=== PATIENT | male | born 1955 | race Caucasian/White ===

== ENCOUNTER 2018-10-28 14:18 | Emergency (ER) | payer MEDICARE, BC ==
[~2018-10-28] VITALS: Ht 172.7 cm; Wt 83.9 kg
--- NOTE | 2018-10-28 14:22 | NUR ---
PT BIBSELF FOR DIZZINESS; PT AAOX4, PT ON MONITOR, VSS, NAD NOTED, PENDING MD WEBB
[2018-10-28] MEDS ORDERED: IV NS 0.9% 1,000 ML BAG IV ONE (14:30)
[2018-10-28 14:43] LABS: BASOPHILS % (AUTO) 0.3 % (0.0-2.0); HEMATOCRIT 34 % (39-51); HEMOGLOBIN 11.4 g/dL (13.5-17.5); LYMPHOCYTES # (AUTO) 0.4 /CMM (0.8-4.8); LYMPHOCYTES % (AUTO) 16.6 % (20.0-44.0); MEAN CORPUSCULAR HGB CONC 34 g/dl (31.0-36.0); MEAN CORPUSCULAR VOLUME 96 fL (80-96); MONOCYTES # (AUTO) 0.6 /CMM (0.1-1.30); MONOCYTES % (AUTO) 26.1 % (2.0-12.0); NEUTROPHILS # (AUTO) 1.3 /CMM (1.8-8.9); PLATELET COUNT (AUTO) 169 /CMM (150-450); RED BLOOD CELL COUNT(AUTO) 3.52 MIL/uL (4.5-6.0); WHITE BLOOD COUNT (AUTO) 2.2 K/uL (4.3-11.0)
[2018-10-28 14:55] LABS: ALANINE AMINOTRANSFERASE 21 U/L (12-78); ALBUMIN 3.4 g/dL (3.4-5.0); ALKALINE PHOSPHATASE 53 U/L (46-116); ASPARTATE AMINOTRANSFERASE 13 U/L (15-37); BILIRUBIN,DIRECT 0.1 mg/dL (0.0-0.2); BILIRUBIN,TOTAL 0.3 mg/dL (0.2-1.0); CALCIUM, SERUM 9.6 mg/dL (8.5-10.1); CARBON DIOXIDE 26 mmol/L (21-32); CHLORIDE 101 mmol/L (98-107); CREATININE 1.2 mg/dL (0.6-1.3); GLUCOSE 164 mg/dL (74-106); POTASSIUM 3.6 mmol/L (3.5-5.1); SODIUM SERUM 138 mmol/L (136-145); TOTAL PROTEIN, SERUM 7.5 g/dL (6.4-8.2); UREA NITROGEN, BLOOD 23 mg/dL (7-18)
--- NOTE | 2018-10-28 15:40 | NUR ---
ROSIBEL CALLED. WAS PAGED
--- NOTE | 2018-10-28 15:42 | NUR ---
AYSHA HDZ CALLED FOR A TELE BED
--- NOTE | 2018-10-28 15:50 | NUR ---
306-1 TELE BED GIVEN
[2018-10-28] MEDS ORDERED: NITR100C15 PO (16:12)
[2018-10-28] MEDS ORDERED: TRAM50TA2 PO (16:12)
[2018-10-28] MEDS ORDERED: LEVO175T7 PO (16:12)
[2018-10-28] MEDS ORDERED: DEXA4TAB PO (16:12)
[2018-10-28] MEDS ORDERED: TAMS-12 PO (16:12)
[2018-10-28] MEDS ORDERED: POMA4CAP PO (16:12)
[2018-10-28] MEDS ORDERED: FURO20TA4 PO (16:12)
[2018-10-28] MEDS ORDERED: ALBU18HF2 INH (16:12)
[2018-10-28] MEDS ORDERED: AMLO1CAP9 PO (16:12)
[2018-10-28] MEDS ORDERED: VALA500T36 PO (16:12)
[2018-10-28] MEDS ORDERED: WARF10TA45 PO (16:12)
[2018-10-28 16:58] LABS: OCCULT BLOOD STOOL NEGATIVE (NEGATIVE)
[2018-10-28 17:10] LABS: APPEARANCE,URINE Cloudy (CLEAR); BILIRUBIN,URINE SMALL (NEGATIVE); BLOOD, URINE Large Ery/uL (NEGATIVE); COLOR,URINE Brown (YELLOW); KETONES,URINE Negative (NEGATIVE); LEUKOCYTE ESTERASE ,URINE Negative (NEGATIVE); NITRITE, URINE Negative (NEGATIVE); PROTEIN,URINE 100 mg/dl (NEGATIVE); UGLUCOSE Negative (NEGATIVE); UROBILINOGEN,URINE 0.2 EU/dL (0.2)
[2018-10-28 17:19] LABS: BACTERIA,URINE 0 /HPF (None Seen); SQUAMOUS EPITHELIAL CELL,UR Few /HPF (None Seen)
--- NOTE | 2018-10-28 17:30 | NUR ---
PER DR. BOWENS PT WILL NOT BE ADMITTED INPATIENT, DR. WARE DOES NOT WANT HIM TO STAY.
[2018-10-28 17:37] VITALS: BP 124/69
--- NOTE | 2018-10-28 17:37 | NUR ---
Patient discharged to home in stable condition. Written and verbal after care instructions given. Patient verbalizes understanding of instruction. IV removed. Catheter intact and site benign. Pressure and 4x4 applied to site. No bleeding noted.
== END 2018-10-28 17:37 | disposition home or self-care (01) ==
LOC: ER 14:21 → TELE 16:25 → UNDOADMIN 16:25
DX: R42 Dizziness and giddiness (principal); I10 Essential (primary) hypertension; N40.0 Benign prostatic hyperplasia without lower urinary tract symptoms; Z60.2 Problems related to living alone; Z79.82 Long term (current) use of aspirin; Z79.01 Long term (current) use of anticoagulants; Z79.899 Other long term (current) drug therapy; Z86.718 Personal history of other venous thrombosis and embolism; Z85.79 Personal history of other malignant neoplasms of lymphoid, hematopoietic and related tissues; Z85.850 Personal history of malignant neoplasm of thyroid
CPT/HCPCS: 36415; 71045; 80048; 80076; 81001; 82272; 83605; 84484; 85025; 85730; 87081; 87086; 93005; 96360; 99284; J7030; 81000-TC